=== PATIENT | male | born 1965 | race Caucasian/White ===

== ENCOUNTER 2017-04-30 06:30 | Day surgery (SDC) | payer BC ==
[~2017-04-30 06:30] MED LIST: Buffered Lidocaine 0.9% SYRIN* 5 ML/SYR SYRINGE INTRADERM ONE
[2017-04-30] MEDS ORDERED: Ciprofloxacin 400MG IVPREMIX(* 400 MG/200 ML BAG ONE (07:14)
[2017-04-30] MEDS ORDERED: Clindamycin 900 MG IVPREMIX(* 900 MG/50 ML SDV IV ONE (07:14)
[2017-04-30] MEDS ORDERED: Lidocaine 1.5% EPI 1:200,000* 30 ML SDV ONE (07:19)
[2017-04-30] MEDS ORDERED: Lidocaine 2% W/EPI 1:100,000* 20 ML MDV ONE (07:19)
[2017-04-30] MEDS ORDERED: Scopolamine 1.5 mg* PATCH ONE (07:32)
[2017-04-30] MEDS ORDERED: fentaNYL* 50 MCG/ML 2 ML VIAL (100 MCG VIAL) ONE ×3 (07:40→10:21)
[2017-04-30] MEDS ORDERED: Midazolam* 1 MG/ML 2 ML VIAL (2 MG) ONE (07:40)
[2017-04-30] MEDS ORDERED: Metoclopramide IV* 5 MG/ML 2 ML VIAL ONE (08:05)
[2017-04-30] MEDS ORDERED: Dexamethasone IV* 4 MG/ML 1 ML (4 MG) ONE (08:05)
[2017-04-30] MEDS ORDERED: Lidocaine 2% PF * 5 ML VIAL ONE (08:05)
[2017-04-30] MEDS ORDERED: Propofol* 10 MG/ML 20 ML BTL IV PUSH ONE (08:05)
[2017-04-30] MEDS ORDERED: Succinylcholine* 20 MG/ML 10 ML VIAL ONE (08:05)
[2017-04-30] MEDS ORDERED: Phenylephrine IV* 40 MCG/ML 10 ML SYRINGE ONE (08:22)
[2017-04-30] MEDS ORDERED: Acetaminophen TAB* 325 MG PO PRN (08:31)
[2017-04-30] MEDS ORDERED: HYDROmorphone* 1 MG/ML 1 ML SYR IV PRN (08:31)
[2017-04-30] MEDS ORDERED: Ibuprofen TAB* 600 MG PO PRN (08:31)
[2017-04-30] MEDS ORDERED: oxyCODONE TAB* 5 MG TAB PO PRN (08:31)
[2017-04-30] MEDS ORDERED: fentaNYL* 50 MCG/ML 2 ML VIAL (100 MCG VIAL) IV PRN (08:31)
[2017-04-30] MEDS ORDERED: oxyCODONE TAB* 5 MG TAB ONE (10:21)
[2017-04-30 10:55] VITALS: BP 148/88
--- NOTE | 2017-04-30 21:33 | OP ---
DATE OF OPERATION: 04/30/17 [facility] DATE OF : 61 SURGEON: Nic Levy MD CHIEF HUMAN RESOURCES OFFICER: BRUNO Holden. ANESTHESIOLOGIST: Melinda Momin MD ANESTHESIA: General endotracheal anesthesia. 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 POST-OP DIAGNOSIS: Right neck mass, most consistent with branchial cleft cyst. OPERATIVE PROCEDURE: Excision of right neck mass under general endotracheal anesthesia. ESTIMATED BLOOD LOSS: Minimum. SPECIMENS: Jugular lymph nodes into his right neck mass. COMPLICATIONS: None. DESCRIPTION OF PROCEDURE: The patient was taken to the operating room, placed in the supine position on the operating table, general anesthesia induced, orotracheally intubated, his head was extended and turned and an incision was demarcated and injected with lidocaine with epinephrine. He was prepped with Betadine and draped in a sterile fashion. Incision was made and with a #15 blade through the skin and down to the platysma, which was then isolated and cut. I initially used the anterior border of the sternocleidomastoid muscle to dissect down to where I thought I found what it was and used bipolar and blunt dissection to dissect out, but it turned out to be a big lot of lymph nodes that were sitting on the internal jugular vein. I thought I should take these testing for pathology and label them right jugular lymph nodes. I palpated further and eventually found the cyst deep to the sternocleidomastoid muscle, so I came over the top of the muscle where on posteriorly dissecting along it, some fibers and found the cyst deep to the body of the sternocleidomastoid muscle in the mid level of the neck. Used blunt dissection and bipolar to come around, it did rupture but I was able to remove the cyst in its entirety. Hemostasis was ensured, irrigated with normal saline. The skin was closed with deep dermal 3-0 Polysorb and a running subcuticular Prolene, Steri-Strips with Mastisol. The patient tolerated this well. No complications. Transferred to the recovery room in stable condition. [id number]/[facility] #: [id number] [facility] CENTERVioleta
== END 2017-04-30 11:21 | disposition home or self-care (01) ==
LOC: OR 06:30
PROVIDERS: ATTEND Otolaryngology
DX: D11.9 Benign neoplasm of major salivary gland, unspecified (principal); R59.9 Enlarged lymph nodes, unspecified
CPT/HCPCS: 88305; 88307; A9270-GY; J0330; J0744; J1100; J2250; J2704; J2765; J3010

== ENCOUNTER 2019-11-07 08:03 | Emergency (ER) | payer BC ==
[2019-11-07 08:18] VITALS: BP 115/72
--- NOTE | 2019-11-07 08:26 | UC ---
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 Remote hx of asthma, but in the past 2 days he has had increased chest tightness and found that his albuterol MDI was out of med. Low grade fever, persistent headache and congestion. - History of Current Complaint Chief Complaint: UCRespiratory Stated Complaint: SINUS HEADACHE CONGESTION Time Seen by Provider: 11/07/19 08:18 Hx Obtained From: Patient Onset/Duration: Gradual Onset, Lasting Days Pain Intensity: 0 Cough: Nonproductive Associated Signs & Symptoms: Positive: Dysphagia, Wheezing, Sinus Discomfort, Fever - Epiglottits Risk Factors Epiglottis Risk Factors: Negative - Allergies/Home Medications Allergies/Adverse Reactions: Allergies Allergy/AdvReac Type Severity Reaction Status Date / Time bee venom protein (honey bee) Allergy Anaphylatic Verified 11/07/19 08:14 Shock doxycycline Allergy Anaphylatic Verified 11/07/19 08:14 Shock ondansetron Allergy Anaphylatic Verified 11/07/19 08:14 Shock Penicillins Allergy Anaphylatic Verified 11/07/19 08:14 Shock pine nut Allergy Anaphylatic Verified 11/07/19 08:14 Shock Xxuzhmj-Hbf-Jrv Reductase Allergy Muscle Ache Verified 11/07/19 08:14 Inhibitor Tree Nuts Allergy Anaphylatic Verified 11/07/19 08:14 Shock walnut Allergy Anaphylatic Verified 11/07/19 08:14 Shock PMH/Surg Hx/FS Hx/Imm Hx Previously Healthy: Yes - Surgical History Surgical History: Yes Surgery Procedure, Year, and Place: 2008 FATTY TUMOR REMOVED RIGHT LEG HIP [place]. 2009 UMBILICAL HERNIA REPAIR [place]. 2010 2 TUMORS REMOVED LEFT LEG [facility]. APPENDIX 2011 [facility]. 1986 PILONIDAL CYST - Family History Known Family History: Positive: Other - both parents had lung cancer - Social History Occupation: Employed Full-time Alcohol Use: Rare Alcohol Amount: WINE X 3 YEARS Substance Use Type: None Smoking Status (MU): Never Smoked Tobacco Have You Smoked in the Last Year: No Review of Systems All Other Systems Reviewed And Are Negative: Yes Constitutional: Positive: Fever, Fatigue Skin: Positive: Negative Eyes: Positive: Negative ENT: Positive: Sore Throat, Nasal Discharge, Sinus Congestion, Sinus Pain/ Tenderness Respiratory: Positive: Shortness Of Breath, Cough Cardiovascular: Positive: Negative Gastrointestinal: Positive: Negative Genitourinary: Positive: Negative Motor: Positive: Negative Neurovascular: Positive: Negative Musculoskeletal: Positive: Negative Neurological/Mental Status: Positive: Headache Psychological: Positive: Negative Is Patient Immunocompromised?: No Physical Exam Triage Information Reviewed: Yes Appearance: Ill-Appearing - looks mildly unwell Vital Signs: Initial Vital Signs Temp 98.5 F 11/07/19 08:11 Pulse 100 11/07/19 08:11 Resp 16 11/07/19 08:11 BP 115/72 11/07/19 08:11 Pulse Ox 95 11/07/19 08:11 Eye Exam: Normal ENT: Positive: Pharyngeal erythema, TM dull - bilateral serous fluid Neck: Positive: Supple, Nontender, No Lymphadenopathy Respiratory: Positive: No respiratory distress, Decreased breath sounds, Wheezing - throughout both lung [place] Cardiovascular Exam: Normal Bowel Sounds: Positive: Present Musculoskeletal Exam: Normal Neurological: Positive: Alert, Muscle Tone Normal Psychological Exam: Normal Skin Exam: Normal Re-Evaluation - Re-Evaluation First Eval Re-Evaluation Time: 08:50 Change: Improved Comment: air entry improved with decreased wheeze. Throat Pain/Nasal Course/Dx - Course Course Of Treatment: Discussed antibiotics for treatment of sinusitis, and he has tolerated cephalexin without reaction. Continue use of albuterol for wheeze. - Differential Dx/Diagnosis Differential Diagnosis/HQI/PQRI: Pharyngitis, Sinusitis, Other - bronchitis Provider Diagnosis: Sinusitis Discharge ED - Sign-Out/Discharge Documenting (check all that apply): Patient Departure All imaging exams completed and their final reports reviewed: No Studies - Discharge Plan Condition: Stable Disposition: HOME Prescriptions: Albuterol HFA INHALER* [Ventolin HFA Inhaler*] 2 puff INH Q6H PRN #1 mdi PRN Reason: Wheezing Cephalexin CAP* [Keflex 500 CAP*] 500 mg PO TID #30 cap Patient Education Materials: Sinusitis (ED) Referrals: Roslyn Denton MD [Primary Care Provider] - Additional Instructions: Begin cephalexin 500mg three times daily for treatment of sinusitis. Use albuterol 2 puffs up to 4 times per day to improve air entry. Use Afrin with caution because use for more that a few days can paradoxically cause more nasal congestion. Guiafensin (Mucinex) might help to relieve the sticky mucous. - Billing Disposition and Condition Condition: STABLE Disposition: Home
[2019-11-07] MEDS ORDERED: Albuterol 2.5 MG/3 ML NEB.SOL* (0.083%) INH ONE (08:27)
== END 2019-11-07 08:56 | disposition home or self-care (01) ==
LOC: UCCORT 08:03
DX: J32.9 Chronic sinusitis, unspecified (principal); Z91.018 Allergy to other foods; Z91.030 Bee allergy status; Z88.0 Allergy status to penicillin; Z88.1 Allergy status to other antibiotic agents; Z88.8 Allergy status to other drugs, medicaments and biological substances; Z91.09 Other allergy status, other than to drugs and biological substances
CPT/HCPCS: 99212; G0463